=== PATIENT | female | born 1995 | race Caucasian/White ===

== ENCOUNTER 2019-08-17 14:02 | Inpatient (IN) | payer OTHER ==
[~2019-08-17] VITALS: Ht 162.6 cm; Wt 56.7 kg
[2019-09-16] MEDS ORDERED: PRENATAL 19 TA1 EAC1 PO (13:49)
[2019-09-18] MEDS ORDERED: RHOGAM ULTR1500 UNIT IM (11:55)
== END 2019-09-19 16:27 | disposition home or self-care (01) | DRG 807 ==
LOC: LDR 09-16 12:05 → OB/GYN 09-16 12:05 → LDR 09-16 14:06 → OB/GYN 09-17 03:51 → SURG 09-21 14:00 → LDR 09-23 14:00
PROVIDERS: ADMIT Specialist
PROC: 3E0P7VZ Introduction of Hormone into Female Reproductive, Via Natural or Artificial Opening (ICD-10-PCS; 2019-09-16)
PROC: 4A1HXCZ Monitoring of Products of Conception, Cardiac Rate, External Approach (ICD-10-PCS; 2019-09-16)
PROC: 10E0XZZ Delivery of Products of Conception, External Approach (ICD-10-PCS; principal; 2019-09-17)
PROC: 0W8NXZZ Division of Female Perineum, External Approach (ICD-10-PCS; 2019-09-17)
PROC: 3E033VJ Introduction of Other Hormone into Peripheral Vein, Percutaneous Approach (ICD-10-PCS; 2019-09-17)
DX: O80 Encounter for full-term uncomplicated delivery (principal); Z37.0 Single live birth; Z3A.39 39 weeks gestation of pregnancy

== ENCOUNTER 2024-08-03 11:07 | Inpatient (IN) | payer OTHER ==
[~2024-08-03] VITALS: Ht 162.6 cm; Wt 59.0 kg
[~2024-08-03 11:07] MED LIST: PRENATAL 19 TA1 EAC1 PO; RHOGAM ULTR1500 UNIT IM
[2024-08-04] VITALS (7 sets, daily range): BP systolic 101–138; BP diastolic 64–78
[2024-08-04] MEDS ORDERED: RINGERS SOLUTION,LACTATED 1,000 ML IV SCH (07:00)
[2024-08-04] MEDS ORDERED: OXYTOCIN 500 ML IV SCH (07:00)
[2024-08-04] MEDS ORDERED: PRENATAL TABLE1 EAC1 PO (08:05)
[2024-08-04] MEDS ORDERED: IRON 100 PLUS1 EACH PO (08:06)
[2024-08-04 08:20] LABS: URINE APPEARANCE Cloudy; URINE BILIRRUBIN Negative (NEGATIVE); URINE BLOOD Negative; URINE COLOR Yellow; URINE GLUCOSE Negative (NEGATIVE); URINE KETONE Negative (NEGATIVE); URINE LEUKOCYTE Moderate; URINE NITRATE Negative; URINE PROTEIN Trace (NEGATIVE)
[2024-08-04 08:21] LABS: HEMATOCRIT 28.7 % (36.0-45.00); HEMOGLOBIN 9.7 g/dL (12.0-15.00); MEAN CELL VOLUME 79.6 fL (80.00-100.00); MEAN CORPUSCULAR HEMOGLOBIN 26.9 pg (27.00-32.0); MEAN CORPUSCULAR HGB CONC 33.8 g/dl (32.0-36.0); PLATELET COUNT 248 K/uL (150-450); RED BLOOD COUNT 3.61 M/uL (4.00-6.00); RED CELL DISTRIBUTION WIDTH 16.7 % (11.5-14.5); URINE EPITHELIAL CELLS 72.9 uL (0.0-38.8); URINE RBC 11.1 uL (0.0-20.8); URINE WBC 314.7 uL (0.0-23.2)
[2024-08-04 08:38] LABS: INR < 0.93; PARTIAL THROMBOPLASTIN TIME 23.5 SECONDS (22.0-34.0); PROTHROMBIN TIME 9.9 SECONDS (9.0-11.5)
[2024-08-04 08:50] LABS: ALBUMIN 2.7 gm/dL (3.4-5.0); BILIRUBIN TOTAL 0.35 mg/dL (0.3-1.2); CALCIUM 9.1 mg/dL (8.5-10.1); CREATININE SERUM 0.5 mg/dL (0.55-1.02); GFR 143.9; GLOBULINA 3.9 G/DL (2.4-3.5); POTASSIUM 3.88 mEq/L (3.5-5.1); TOTAL PROTEIN 6.6 gm/dL (6.4-8.2)
[2024-08-04 09:13] LABS: URINE BACTERIA > 9821.5 uL (0.0-1933)
[2024-08-04] MEDS ORDERED: MEPERIDINE HCL/PF 50 MG/ML VIAL IV STA (10:22)
[2024-08-04] MEDS ORDERED: PROMETHAZINE HCL 25 MG/ML AMPUL IV STA (10:22)
[2024-08-04] MEDS ORDERED: LIDOCAINE HCL 1% 10ML VIAL IJ ONE (13:15)
[2024-08-04] MEDS ORDERED: OxyCODONE HCL/APAP UD (PERCOCET) PO PRN (13:15)
[2024-08-04] MEDS ORDERED: CHLORHEXIDINE GLUCONATE 120 ML BOTTLE TOP ONE (13:15)
[2024-08-04] MEDS ORDERED: ACETAMINOPHEN 325 MG TABLET PO PRN (13:15)
[2024-08-04] MEDS ORDERED: ERYTHROMYCIN BASE OPHT 1GM EACH TUBE OP ONE (13:15)
[2024-08-04] MEDS ORDERED: OXYTOCIN 20 UNITS/1000ML RL PIGGYBAG IV ONE (13:15)
[2024-08-04] MEDS ORDERED: BENZOCAINE/MENTHOL 90 ML BOTTLE TOP SCH (17:00)
[2024-08-04] MEDS ORDERED: HYDROCORTISONE 2.5% 30 GM TUBE RECTAL SCH (17:00)
[2024-08-05] VITALS: BP 99/67
[2024-08-05 01:16] LABS: HEMATOCRIT 26.6 % (36.0-45.00); MEAN CELL VOLUME 76.7 fL (80.00-100.00); MEAN CORPUSCULAR HGB CONC 34.8 g/dl (32.0-36.0); PLATELET COUNT 225 K/uL (150-450); RED BLOOD COUNT 3.47 M/uL (4.00-6.00); RED CELL DISTRIBUTION WIDTH 16.7 % (11.5-14.5)
[2024-08-05 01:18] LABS: HEMOGLOBIN 9.3 g/dL (12.0-15.00); MEAN CORPUSCULAR HEMOGLOBIN 26.8 pg (27.00-32.0)
[2024-08-05] MEDS ORDERED: FF) RHO(D) IMMUNE GLOBULIN (POM) IM ONE (06:30)
[2024-08-05] MEDS ORDERED: HYPERRHO S-1500 UNIT IM (06:31)
[2024-08-05 08:00] VITALS: BP 107/68
[2024-08-05 18:47] VITALS: BP 120/80
[2024-08-06] VITALS: BP 108/62
[2024-08-06 08:00] VITALS: BP 130/80
== END 2024-08-06 14:00 | disposition home or self-care (01) | DRG 807 ==
LOC: OB/GYN 11:07 → LDR 08-04 06:29 → OB/GYN 08-04 13:24
PROVIDERS: ADMIT Specialist; ATTEND Specialist
PROC: 10E0XZZ Delivery of Products of Conception, External Approach (ICD-10-PCS; principal; 2024-08-04)
PROC: 4A1HXCZ Monitoring of Products of Conception, Cardiac Rate, External Approach (ICD-10-PCS; 2024-08-04)
PROC: 3E033VJ Introduction of Other Hormone into Peripheral Vein, Percutaneous Approach (ICD-10-PCS; 2024-08-04)
DX: O99.02 Anemia complicating childbirth (principal); Z37.0 Single live birth; D64.9 Anemia, unspecified; O48.0 Post-term pregnancy; Z3A.40 40 weeks gestation of pregnancy; Z20.822 Contact with and (suspected) exposure to COVID-19